=== PATIENT | female | born 1940 ===

== ENCOUNTER 2023-03-26 10:37 | Outpatient (REF) | payer MEDICARE, OTHER, SELFPAY ==
--- NOTE | ~2023-03-26 | XR_ITS ---
EXAMINATION: XR SHOULDER, LEFT CLINICAL INFORMATION: Pain in left shoulder COMPARISON: None available. TECHNIQUE: AP neutral and scapular Y views of the left shoulder. FINDINGS: There is no fracture or dislocation.. Glenohumeral and acromioclavicular alignment is anatomic with acromioclavicular joint space. The glenohumeral joint space is not well displayed. There are multiple calcifications superior to the humeral head consistent with calcific tendinitis. XR/XR shoulder LT min 2V IMPRESSION: Calcific tendinitis.
== END 2023-03-26 10:38 | disposition home or self-care (01) ==
LOC: HO.HOSX 10:37
PROVIDERS: Visit Provider Orthopaedic Surgery
DX: M25.512 Pain in left shoulder (principal); Z79.899 Other long term (current) drug therapy
CPT/HCPCS: 73030; 99202

== ENCOUNTER 2023-03-26 12:18 | Outpatient (AMB) | payer MEDICARE, OTHER, SELFPAY ==
--- NOTE | 2023-03-26 12:34 | MHC.OFFVIS ---
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 Patient reports that the pain shoots up her neck and across the top of her shoulder that has been going on for a week and half. She denies any injury, numbness and tingling. The patient states that at times her neck pain will radiate down to her left hand. She denies any weakness. She has tried Tylenol and anti-inflammatory medicines which gave her minimal relief. The patient states that she may have aggravated her neck while watching quite a bit of television in bed while she was sick last month. Allergies No Known Allergies Allergy (Verified 03/26/23 12:41) Medication List - Last Reconciled 03/26/23 by Ramo Castellanos MD albuterol sulfate 90 mcg/actuation inhalation amlodipine 5 mg PO DAILY amlodipine 10 mg PO DAILY amoxicillin-pot clavulanate 500-125 mg tabs PO atorvastatin mg PO diclofenac sodium 50 mg PO BID estradiol 0.01%(0.1mg/gram) vaginal fluticasone propionate 110 mcg/actuation (Flovent HFA) 2 puffs inhalation BID meloxicam mg PO metoprolol succinate ER 25 mg PO DAILY metoprolol succinate ER 50 mg PO DAILY triamcinolone acetonide 0.1% topical DAILY PFSH Social History (Updated 03/26/23 @ 12:43 by Aurora Marks CMA) Patient Tobacco Use Status: Current everyday Tobacco user Physical Exam Vital Signs: BMI result Body Mass Index 29.3 Const Other: Well-nourished well-developed very friendly female awake alert and oriented x3 in no acute distress Neck Other: Cervical spine examination shows left-sided paraspinal muscle tenderness, positive Spurling's test, mild discomfort with range of motion Extrem Other: Bilateral upper extremity examination shows good capillary refill, no skin lesions noted, normal sensation light touch Left shoulder examination shows full range of motion when compared to her right shoulder, positive impingement signs, 4+ out of 5 strength with supraspinatus testing, no instability Results Reviewed Results Reviewed: X-rays of the patient's left shoulder show moderate to severe acromioclavicular joint narrowing, a type 2 acromion, no acute bony abnormalities Assessment & Plan Assessment & Plan (1) Left shoulder pain: Code(s): M25.512 - Pain in left shoulder Plan Ms. Silva presents with intermittent left shoulder pain most likely due no impingement syndrome as well as neck pain which radiates down her left arm possibly due to cervical stenosis or a disc herniation. I had a lengthy discussion with the patient regarding the treatment options. She wishes to hold off on a cortisone injection for now. I did give her a prescription for a Medrol Dosepak. Activity modifications were also discussed at length with the patient. She will contact me prior to her follow-up appointment in 4-6 weeks should any questions or concerns arise. I spent 22 minutes in reviewing the patient's records and imaging studies, seeing the patient and documenting in the medical record. Orders: Orders XR shoulder LT min 2V Today M25.512 - Pain in left shoulder Medications: New methylprednisolone (Medrol (Tal)) PO PER PKG DIR 21 ea 0RF Coding Level of Care Code New Pt Level 2 (17448) Diagnoses Left shoulder pain M25.512
[2023-03-26 12:41] VITALS: BMI 29.3
== END 2023-03-26 13:04 | disposition home or self-care (01) ==
PROVIDERS: Visit Provider Orthopaedic Surgery
DX: M25.512 Pain in left shoulder (principal)
CPT/HCPCS: 99202